=== PATIENT | female | born 1950 | race Caucasian/White ===

== ENCOUNTER 2021-04-01 16:56 | Emergency (ER) | payer MEDICARE ==
[~2021-04-01 16:56] MED LIST: JANUMET 50-1,01 EACH PO; METFORMIN HCL500 MG PO
[2021-04-01 17:33] LABS: BASOPHIL 0.7 % (0-2); EOSINOPHIL 1.5 % (0-7); HCT 44.1 % (37.0-47.0); HGB 14.4 g/dl (12.5-16.0); LYMPHOCYTE 28.2 % (15-48); MCH 28.9 pg (25.0-31.0); MCHC 32.7 g/dL (32.0-36.0); MCV 88.6 fL (78.0-100.0); MONOCYTE 9.8 % (0-12); MPV 9.6 fL (6.0-9.5); NEUTROPHIL 59.5 % (41-80); NRBC 0; PLT 253 K/uL (150-400); RBC 4.98 M/uL (4.20-5.40); RDW 14.6 % (11.5-14.0); WBC 8.8 K/uL (4.0-10.5)
[2021-04-01 17:54] LABS: BILIRUBIN NEGATIVE (NEGATIVE); BLOOD 1+ Ery/uL (NEGATIVE); CLARITY CLEAR (CLEAR); COLOR YELLOW (YELLOW); GLUCOSE (U) 3+ mg/dL (NORMAL); LEUKOCYTES 1+ Leu/uL (NEGATIVE); NITRITE NEGATIVE (NEGATIVE); PROTEIN NEGATIVE (NEGATIVE); UROBILINOGEN 0.2 mg/dL (0.2-1.0); pH 5.5 (5.0-9.0)
[2021-04-01 18:01] LABS: BACTERIA 2+; MUCOUS TRACE; URINARY WBC TNTC
[2021-04-01 18:02] LABS: AMORPHOUS URATES CRYSTALS TRACE; STARCH GRANULES PRESENT
[2021-04-01 18:31] LABS: ALBUMIN 3.3 g/dL (3.4-5.0); BILIRUBIN - TOTAL 0.4 mg/dL (0.2-1.0); BUN/CREAT RATIO (CALC) 18.5 RATIO; C-REACTIVE PROTEIN 0.7 mg/dL (<=0.90); CREATININE 0.92 mg/dL (0.51-0.95); GLOBULIN (CALCULATION) 3.8 g/dL; POTASSIUM 4.5 mmol/L (3.5-5.1); TOTAL PROTEIN 7.1 g/dL (6.4-8.2)
[2021-04-01] MEDS ORDERED: AUGMENTIN 500-1 EACH PO (18:38)
[2021-04-01 19:07] LABS: LACTIC ACID 1.7 mmol/L (0.4-1.9)
== END 2021-04-01 20:20 | disposition home or self-care (01) ==
LOC: FER 16:56
PROVIDERS: Emergency Medicine
DX: E11.65 Type 2 diabetes mellitus with hyperglycemia (principal); N39.0 Urinary tract infection, site not specified; I10 Essential (primary) hypertension; Z79.84 Long term (current) use of oral hypoglycemic drugs
CPT/HCPCS: 36415; 80053; 81001; 82728; 83036; 83605; 84145; 84443; 84484; 85025; 86140; 93005; J0696; J7030

== ENCOUNTER 2021-09-07 11:01 | Emergency (ER) | payer MEDICARE ==
[~2021-09-07 11:01] MED LIST changes: +AUGMENTIN 500-1 EACH PO
[2021-09-07 11:40] LABS: BASOPHIL 0.6 % (0-2); EOSINOPHIL 0.7 % (0-7); HCT 50.9 % (37.0-47.0); HGB 16.4 g/dl (12.5-16.0); LYMPHOCYTE 20.2 % (15-48); MCH 29.2 pg (25.0-31.0); MCHC 32.2 g/dL (32.0-36.0); MCV 90.7 fL (78.0-100.0); MONOCYTE 7.1 % (0-12); MPV 8.9 fL (6.0-9.5); NEUTROPHIL 71.1 % (41-80); NRBC 0; PLT 241 K/uL (150-400); RBC 5.61 M/uL (4.20-5.40); RDW 13.2 % (11.5-14.0); WBC 8.6 K/uL (4.0-10.5)
[2021-09-07 12:00] LABS: ALBUMIN 3.3 g/dL (3.4-5.0); BILIRUBIN - TOTAL 0.7 mg/dL (0.2-1.0); BUN/CREAT RATIO (CALC) 15.8 RATIO; CREATININE 0.95 mg/dL (0.51-0.95); POTASSIUM 4.3 mmol/L (3.5-5.1); TOTAL PROTEIN 7.3 g/dL (6.4-8.2)
[2021-09-07 12:18] LABS: CORONAVIRUS 2019 SARS-COV-2 NEGATIVE (NEGATIVE); INFLUENZA A NAA NEGATIVE (NEGATIVE)
[2021-09-07 13:52] LABS: BILIRUBIN 1+ mg/dL (NEGATIVE); BLOOD NEGATIVE Ery/uL (NEGATIVE); CLARITY CLEAR (CLEAR); COLOR YELLOW (YELLOW); GLUCOSE (U) NORMAL (NORMAL); LEUKOCYTES 1+ Leu/uL (NEGATIVE); NITRITE NEGATIVE (NEGATIVE); PROTEIN TRACE (LOW) mg/dL (NEGATIVE); SPECIFIC GRAVITY 1.025 (1.001-1.030); UROBILINOGEN 0.2 mg/dL (0.2-1.0)
[2021-09-07 14:05] LABS: BACTERIA 1+; URINARY RBC RARE
[2021-09-07] MEDS ORDERED: IMODIUM2 MG PO (14:24)
[2021-09-07] MEDS ORDERED: MACROBID100 MG PO (14:24)
== END 2021-09-07 15:04 | disposition home or self-care (01) ==
LOC: FER 11:01
PROVIDERS: Emergency Medicine
DX: N39.0 Urinary tract infection, site not specified (principal); I10 Essential (primary) hypertension; E11.9 Type 2 diabetes mellitus without complications; Z79.84 Long term (current) use of oral hypoglycemic drugs; Z20.822 Contact with and (suspected) exposure to COVID-19
CPT/HCPCS: 36415; 80053; 81001; 85025; 99284; U0002